=== PATIENT | male | born 1985 | race Caucasian/White ===

== ENCOUNTER 2016-08-23 23:34 | Emergency (ER) | payer OTHER ==
[~2016-08-23] VITALS: Ht 175.2 cm; Wt 88.5 kg
[~2016-08-23 23:34] MED LIST: CATAFLAM50 MG PO; CELEXA10 MG PO; CELEXA40 MG PO; CEPHALEXIN500 M1 PO; CLINDAMYCIN HC300 MG PO; CYCLOBENZAPRINE10 MG PO; DAYPRO600 M1 PO; DELTASONE20 M1 PO; FLEXERIL10 MG PO; FLEXERIL5 MG PO; HYDROCODONE BIT1 T11 PO; MOTRIN800 MG PO; Motrin,Rufen800 MG PO; NAPROSYN500 MG PO; NKHM; NORCO 325 MG-51 TAB PO; PARAFON FORTE500 MG PO; PEN-VEE K500 MG PO; PENICILLIN VK500 MG PO; PRILOSEC20 M2 PO; PROZAC40 M1 PO; SERTRALINE25 MG PO; TRAMADOL HCL50 MG PO; TRAMADOL50 MG PO; ULTRAM50 MG PO; ZOFRAN4 MG PO
[2016-08-23 23:56] LABS: BASO # 0.1 10*3/uL (0.0-0.1); BASO % 0.6 % (0.0-1.0); EOS # 0.1 10*3/uL (0.0-0.4); EOS % 0.7 % (1.0-4.0); HEMATOCRIT 48.7 % (42.0-52.0); HEMOGLOBIN 16.3 g/dl (14.0-18.0); LYMPH # 2.3 10*3/uL (1.3-4.4); LYMPH % 27.1 % (27.0-41.0); MEAN CELL VOLUME 86.8 fl (80.0-94.0); MEAN CORPUSCULAR HGB 29.1 pg (27.0-31.0); MEAN CORPUSCULAR HGB CONC 33.5 g/dl (33.0-37.0); MEAN PLATELET VOLUME 8.8 fl (9.6-12.3); MONO # 0.5 10*3/uL (0.1-1.0); MONO % 5.8 % (3.0-9.0); NEUT # 5.5 10*3/uL (2.3-7.9); NEUT % 65.6 % (47.0-73.0); PLATELET COUNT AUTOMATED 310 10*3/uL (130-400); RED BLOOD COUNT 5.61 10*6/uL (4.50-5.90); RED CELL DISTRI WIDTH 13.3 % (0-14.5); WHITE BLOOD COUNT 8.4 10*3/uL (4.8-10.8)
[2016-08-23 23:56] LABS: BILIRUBIN NEGATIVE (NEGATIVE); BLOOD TRACE-LYSED (NEGATIVE); CLARITY CLEAR (CLEAR); COLOR STRAW (YELLOW); GLUCOSE NEGATIVE (NEGATIVE); KETONE NEGATIVE (NEGATIVE); LEUKO ESTERASE NEGATIVE (NEGATIVE); NITRITE NEGATIVE (NEGATIVE); PROTEIN NEGATIVE (NEGATIVE); SPECIFIC GRAVITY <= 1.005 (1.005-1.030); UROBILINOGEN 0.2 E.U./dl (0.2-1.0)
[2016-08-24 00:08] LABS: URINE AMPHETAMINES < 1000 (1000ng/ml); URINE BARBITURATES < 200 (200ng/ml); URINE COCAINE < 300 (300ng/ml)
[2016-08-24 00:12] LABS: EPITHELIAL CELLS 0-2; URINE REFLEX COMMENT NO (NO); WBC 0-2 wbc/hpf (0-5)
[2016-08-24 00:13] LABS: BUN 7 mg/dl (7-24); CARBON DIOXIDE 25 mmol/L (21-32); CHLORIDE 103 mmol/L (98-107); EST GLOM FILT AFRICAN AMERICAN > 60 ml/min; GLUCOSE 101 mg/dL (65-99); POTASSIUM 3.7 mmol/L (3.5-5.1); SODIUM 140 mmol/L (136-145)
== END 2016-08-24 14:46 | disposition home or self-care (01) ==
LOC: ED 23:34
PROVIDERS: Emergency Medicine Emergency Medical Services
DX: F10.129 Alcohol abuse with intoxication, unspecified (principal); R45.851 Suicidal ideations; F32.9 Major depressive disorder, single episode, unspecified; F20.9 Schizophrenia, unspecified; F17.200 Nicotine dependence, unspecified, uncomplicated; Z98.890 Other specified postprocedural states; Z88.8 Allergy status to other drugs, medicaments and biological substances

== ENCOUNTER → 2016-12-26 | Emergency (ER) | payer OTHER ==
[~2016-12-26] VITALS: Ht 175.2 cm; Wt 90.7 kg
== END ==
LOC: ED 02:56
DX: S90.32XA Contusion of left foot, initial encounter (principal); F17.200 Nicotine dependence, unspecified, uncomplicated; Z79.899 Other long term (current) drug therapy; W22.8XXA Striking against or struck by other objects, initial encounter; Y93.89 Activity, other specified; Y92.89 Other specified places as the place of occurrence of the external cause; Y99.9 Unspecified external cause status

== ENCOUNTER 2017-03-06 23:47 | Emergency (ER) | payer OTHER ==
[~2017-03-06] VITALS: Ht 175.2 cm; Wt 90.7 kg
[2017-03-07 01:07] LABS: BILIRUBIN NEGATIVE (NEGATIVE); BLOOD NEGATIVE (NEGATIVE); CLARITY CLEAR (CLEAR); COLOR YELLOW (YELLOW); GLUCOSE NEGATIVE (NEGATIVE); KETONE NEGATIVE (NEGATIVE); LEUKO ESTERASE NEGATIVE (NEGATIVE); NITRITE NEGATIVE (NEGATIVE); PH 5.5 (5.0-9.0); PROTEIN NEGATIVE (NEGATIVE); SPECIFIC GRAVITY <= 1.005 (1.005-1.030); UROBILINOGEN 0.2 E.U./dl (0.2-1.0)
[2017-03-07 01:11] LABS: EPITHELIAL CELLS 0-5
[2017-03-07 01:12] LABS: RBC 0-2 rbc/hpf (0-2); URINE REFLEX COMMENT NO (NO); WBC 0-2 wbc/hpf (0-5)
[2017-03-07 01:15] LABS: URINE AMPHETAMINES < 1000 (1000ng/ml); URINE BARBITURATES < 200 (200ng/ml); URINE COCAINE > 300 (300ng/ml)
== END 2017-03-07 01:16 | disposition left against medical advice (07) ==
LOC: ED 23:47
PROVIDERS: Emergency Medicine Emergency Medical Services
DX: S01.511A Laceration without foreign body of lip, initial encounter (principal); Z79.899 Other long term (current) drug therapy; Y08.89XA Assault by other specified means, initial encounter; Y93.89 Activity, other specified; Y92.89 Other specified places as the place of occurrence of the external cause; Y99.9 Unspecified external cause status

== ENCOUNTER 2018-08-15 17:11 | Inpatient (IN) | payer OTHER ==
[~2018-08-15] VITALS: Ht 175.2 cm; Wt 108.9 kg
--- NOTE | ~2018-08-15 | EKG ---
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
[2018-08-15 17:11] VITALS: BP 156/80
[2018-08-15 17:41] LABS: BASO # 0.1 10*3/uL (0.0-0.1); BASO % 0.5 % (0.0-1.0); EOS # 0.1 10*3/uL (0.0-0.4); EOS % 0.5 % (1.0-4.0); HEMATOCRIT 45.4 % (42.0-52.0); HEMOGLOBIN 14.7 g/dl (14.0-18.0); LYMPH # 2.5 10*3/uL (1.3-4.4); LYMPH % 26.8 % (27.0-41.0); MEAN CELL VOLUME 82.1 fl (80.0-94.0); MEAN CORPUSCULAR HGB 26.6 pg (27.0-31.0); MEAN CORPUSCULAR HGB CONC 32.4 g/dl (33.0-37.0); MEAN PLATELET VOLUME 9.3 fl (9.6-12.3); MONO # 0.7 10*3/uL (0.1-1.0); MONO % 7.4 % (3.0-9.0); NEUT % 64.6 % (47.0-73.0); PLATELET COUNT AUTOMATED 277 10*3/uL (130-400); RED BLOOD COUNT 5.53 10*6/uL (4.50-5.90); RED CELL DISTRI WIDTH 14.8 % (0-14.5); WHITE BLOOD COUNT 9.2 10*3/uL (4.8-10.8)
[2018-08-15 17:50] LABS: ACT PARTIAL THROMBO TIME 23.6 SECONDS (20.8-31.5)
[2018-08-15 17:57] LABS: BILIRUBIN NEGATIVE (NEGATIVE); BLOOD TRACE-INTACT (NEGATIVE); CLARITY SL CLOUDY (CLEAR); COLOR YELLOW (YELLOW); GLUCOSE NEGATIVE (NEGATIVE); KETONE TRACE (NEGATIVE); LEUKO ESTERASE NEGATIVE (NEGATIVE); NITRITE NEGATIVE (NEGATIVE); PH 5.5 (5.0-9.0); SPECIFIC GRAVITY >= 1.030 (1.005-1.030)
[2018-08-15 17:58] LABS: ALBUMIN 3.8 gm/dl (3.1-4.5); ALKALINE PHOSPHATASE 127 U/L (45-117); BUN 8 mg/dl (7-24); CHLORIDE 104 mmol/L (98-107); CREATININE 0.96 mg/dL (0.70-1.30); LIPASE 194 U/L (73-393); POTASSIUM 3.5 mmol/L (3.5-5.1); SGOT/AST 28 IU/L (3-35); SGPT/ALT 47 U/L (12-78); SODIUM 141 mmol/L (136-145); TOTAL PROTEIN 7.7 gm/dL (6.4-8.2)
[2018-08-15 18:03] LABS: ACETAMINOPHEN (TYLENOL) < 5.0 ug/ml (10-30); ETHYL ALCOHOL < 3.0 mg/dl (<3); TROPONIN I < 0.015 ng/ml (<0.045)
[2018-08-15 18:06] LABS: URINE AMPHETAMINES < 1000 (1000ng/ml); URINE BARBITURATES < 200 (200ng/ml); URINE BENZODIAZEPINES < 200 (200ng/ml); URINE CANNABINOIDS (THC) > 50 (50ng/ml); URINE COCAINE < 300 (300ng/ml); URINE METHADONE < 300 (300ng/ml); URINE OPIATES < 300 (300ng/ml)
[2018-08-15 18:10] LABS: BACTERIA 1+; MUCOUS 2+; URINE PHENCYCLIDINE < 25 (25ng/ml)
[2018-08-15 18:35] VITALS: BP 146/88
--- NOTE | 2018-08-15 18:44 | NUR ---
PT REQUESTED TO STAY IN HIS STREET CLOTHES AT THIS TIME
--- NOTE | 2018-08-15 18:49 | NUR ---
Time: 1839 A 33 year old MALE admitted to under services of MARY BHATT DO. Pt. arrived via ER from ER. Chief complaint: ALCOHOL ABUSE. ORIENTED TO ROOM, CALL LIGHT SYSTEM DEMONSTRATED. ZORAN WEBER
--- NOTE | 2018-08-15 19:55 | NUR ---
PATIENT MEDICATED COUNTED WITH RENAE RN AND KAYLIN SAMPSON. SENT TO PHARMACY AT THIS TIME
[2018-08-15 20:00] VITALS: BP 130/86
--- NOTE | 2018-08-15 20:13 | NUR ---
PATIENT PROVIDED WITH NICODERM PATCH PER DRS ORDERS FOR COMPLAINTS OF NICOTENE WITHDRAWL. PATIENT DENIES OTHER COMPLAINTS AT THIS TIME. RN WILL CONTINUE TO MONITOR
[2018-08-15] MEDS ORDERED: MIRTAZAPINE15 M2 PO (21:54)
[2018-08-15] MEDS ORDERED: QUETIAPINE FUM200 M3 PO (21:54)
[2018-08-15] MEDS ORDERED: OMEPRAZOLE40 MG PO (21:54)
[2018-08-15] MEDS ORDERED: REXULTI2 MG PO (21:54)
[2018-08-15] MEDS ORDERED: HYDROXYZINE PAM50 MG PO (21:55)
[2018-08-15] MEDS ORDERED: TRINTELLIX10 MG PO (21:55)
[2018-08-15] MEDS ORDERED: CYCLOBENZAPRINE10 MG PO (22:04)
[2018-08-16] VITALS: BP 136/79
--- NOTE | 2018-08-16 00:37 | NUR ---
RESTING IN BED WATCHING TV. IV FLUIDS CONT. NO DISTRESS NOTED. DENIES C/O'S PAIN OF DISCOMFORT AT THIS TIME.
--- NOTE | 2018-08-16 01:24 | NUR ---
RESTING IN BED WITH EYES CLOSED. APPEARS TO BE SLEEPING. AWAKENED FOR ROUTINE LIBRIUM PO. DENIES NEED FOR ANY OTHER PRN MEDS AT THIS TIME. NO TREMORS NOTED AND NO OTHER C/O'S VOICED.
--- NOTE | 2018-08-16 06:21 | NUR ---
APPEARS TO HAVE SLEPT THIS SHIFT. NO DISTRESS NOTED.
[2018-08-16 08:00] VITALS: BP 130/88
--- NOTE | 2018-08-16 09:05 | NUR ---
PT REQUESTED SEROQUEL TO BE GIVEN AT HS.
--- NOTE | 2018-08-16 09:15 | NUR ---
PATIENT MEETS [facility]. PATIENT WANTS TO FOLLOW UP WITH [facility] IN [place] FOR INTENSIVE OUTPATIENT TREATMENT. ENEDINA MATHEWS B.A. SENIOR PRODUCT ENGINEER
[2018-08-16 12:00] VITALS: BP 135/82
--- NOTE | 2018-08-16 12:41 | NUR ---
PT MEDICATED WITH TYLENOL 500MG PO FOR C/O DENTAL PAIN.
--- NOTE | 2018-08-16 13:10 | NUR ---
PT STATED TYLENOL WAS EFFECTIVE IN EASING HIS DENTAL PAIN.
[2018-08-16 16:00] VITALS: BP 140/80
--- NOTE | 2018-08-16 16:49 | NUR ---
NEW NICOTINE PATCH PLACED ON PATIENTS LEFT ARM AT THIS TIME DUE TO PATIENTS LAST PATCH FALLING OFF. PATIENT DENIES ANY OTHER NEEDS AT THIS TIME.
[2018-08-16 20:00] VITALS: BP 134/83
[2018-08-17] VITALS: BP 126/78
--- NOTE | 2018-08-17 07:48 | NUR ---
Self shower , monitor removed. pt. stated that Doc. told him yesterday that monitor would be dc'd today , I offered to check with physician prior to re-application. Pt. then requested list of homeless shelters as he would like to start making calls prior to discharge. Awaiting physician arrival.
[2018-08-17 08:00] VITALS: BP 137/80
--- NOTE | 2018-08-17 08:54 | NUR ---
Discussed discontinuation of monitor w/ Dr. Kumar. Monitor placed.
--- NOTE | 2018-08-17 09:00 | NUR ---
case management was informed that patient stated he would be homeless when he was discharged. case management talked with patient, gave him a homeless, residential list. patient understood that he would have to call and talk with the shelters and see if there were any availabilities. case management and [facility] will follow with patient
[2018-08-17 12:00] VITALS: BP 129/85
--- NOTE | 2018-08-17 12:22 | NUR ---
States recieved information on homeless shelters, made a call and is to call back on discharge.
--- NOTE | 2018-08-17 15:09 | NUR ---
DR. Pfeiffer was notified of pt. pending discharge . Recommends no medsand follow up in 2 weeks fr bx result.
--- NOTE | 2018-08-17 15:41 | NUR ---
PATIENT IS GOING TO [facility] TO RESUME HIS IOP. PATIENT IOP SCHEDULE IS MONDAYS, TUESDAYS, AND THURSDAYS FROM 9-12PM. PATIENT AGREES AND UNDERSTANDS HIS AFTERCARE PLAN. ENEDINA MATHEWS B.A. MUSIC SOUND LIGHT TECHNICIAN
[2018-08-17 16:00] VITALS: BP 130/76
[2018-08-17 20:00] VITALS: BP 121/81
--- NOTE | 2018-08-17 20:49 | NUR ---
PT C/O OF [place]. PRN MEDS GIVEN. SEE EMAR FOR FURTHER DOCUMENTAION.
[2018-08-18] VITALS: BP 124/70
[2018-08-18 06:25] LABS: BASO % 0.6 % (0.0-1.0); EOS # 0.1 10*3/uL (0.0-0.4); HEMATOCRIT 45.7 % (42.0-52.0); HEMOGLOBIN 14.6 g/dl (14.0-18.0); LYMPH % 29.6 % (27.0-41.0); MEAN CELL VOLUME 82.9 fl (80.0-94.0); MEAN CORPUSCULAR HGB 26.5 pg (27.0-31.0); MEAN CORPUSCULAR HGB CONC 31.9 g/dl (33.0-37.0); MEAN PLATELET VOLUME 9.4 fl (9.6-12.3); MONO # 0.6 10*3/uL (0.1-1.0); MONO % 8.3 % (3.0-9.0); NEUT # 3.9 10*3/uL (2.3-7.9); PLATELET COUNT AUTOMATED 261 10*3/uL (130-400); RED BLOOD COUNT 5.51 10*6/uL (4.50-5.90); RED CELL DISTRI WIDTH 14.2 % (0-14.5); WHITE BLOOD COUNT 6.7 10*3/uL (4.8-10.8)
[2018-08-18 06:48] LABS: CREATININE 0.88 mg/dL (0.70-1.30)
[2018-08-18 08:00] VITALS: BP 124/78
[2018-08-18] MEDS ORDERED: TRINTELLIX10 MG PO (12:23)
[2018-08-18] MEDS ORDERED: OMEPRAZOLE40 MG PO (12:23)
[2018-08-18] MEDS ORDERED: CYCLOBENZAPRINE10 MG PO (12:23)
--- NOTE | 2018-08-18 12:45 | NUR ---
Discharge instructions reviewed with patient/family. Patient receptive and verbalizes understanding. Follow-up care arranged. Written instructions given to patient/family. KHADRA HELTON
--- NOTE | 2018-08-18 12:59 | NUR ---
PT DISCHARGED AT THIS TIME WITH AFTER PICKING UP HIS HOME MEDS IN PHARMACY.
[2018-12-08] MEDS ORDERED: TOBRAMYCIN 5 ML5 M1 OPH (14:04)
== END 2018-08-18 12:59 | disposition home or self-care (01) | DRG 897 ==
LOC: ED 17:11 → EDHOLD 17:49 → 4E 17:49
PROVIDERS: Nurse Practitioner Family; ADMIT Internal Medicine
DX: F10.10 Alcohol abuse, uncomplicated (principal); I10 Essential (primary) hypertension; F41.9 Anxiety disorder, unspecified; F17.210 Nicotine dependence, cigarettes, uncomplicated; R31.9 Hematuria, unspecified; R73.9 Hyperglycemia, unspecified; F32.9 Major depressive disorder, single episode, unspecified; Z80.8 Family history of malignant neoplasm of other organs or systems; Z71.6 Tobacco abuse counseling; Z81.8 Family history of other mental and behavioral disorders

== ENCOUNTER 2018-11-16 13:01 | Inpatient (IN) | payer OTHER ==
[~2018-11-16] VITALS: Ht 175.3 cm; Wt 105.3 kg
--- NOTE | ~2018-11-16 | EKG ---
[place], [place] ELECTROCARDIOGRAM REPORT NAME: BEAR TAVERAS UNIT #: [id number] ROOM: 416 DOCTOR: CHRISTINE DRAFT REPORT BIRTHDATE: [birth year] [facility] Test Date: 2018-11-16 Test Time: 14:26:57 Pat Name: BEAR TAVERAS Department: Room: 416 Gender: M Fbi Investigator: Eddie Malone : 1985 Requested By: RO PARADA Order Number: [id number] Reading MD: Lupe Morales MD Measurements Intervals [place] Rate: 81 P: 37 ME: 144 QRS: -45 QRSD: 96 T: -6 QT: 386 QTc: 448 Interpretive Statements Sinus rhythm Left anterior fascicular block Consider anterior infarct Compared to ECG 08/15/2018 17:35:12 Left anterior fascicular block now present Myocardial infarct finding now present Left-axis deviation no longer present ST (T wave) deviation no longer present Electronically Signed On 11-18-2018 6:28:09 PDT by Lupe Morales MD CM:EKGRPT:ELECTROCARDIOGRAM REPORT [id number] RO SURESH DRAFT REPORT RO PARADA DO
--- NOTE | ~2018-11-16 | CON ---
[place], [place] REPORT OF CONSULTATION NAME: BEAR TAVERAS UNIT #: [id number] ROOM: 416 DOCTOR: CHUCKY PHD MATIAS BIRTHDATE: [birth year] DOS: 11/17/2018 HISTORY OF PRESENT ILLNESS: The patient is a 33-year-old male referred by the hospitalist with concerns for depression and alcohol withdrawal. At the present time, the patient is on the 4th floor at [facility]. He is drinking up to 20 to 24 ounce cans of beer per day. He recently had 60 days sober and relapsed after his car broke down. He was living with his and 2 kids and is unsure if he can return due to relationship issues with his as a result of his drinking. 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 He also smokes 2 packs per day and used marijuana in the past. PAST MEDICAL HISTORY: Adjustment disorder with depressed mood, depression, tobacco abuse, alcohol abuse, cannabis abuse. MEDICATIONS: Folic acid, thiamine, Theragran, Lovenox, Desyrel, Zofran, Motrin, Tylenol, Restoril, Bentyl, Robaxin, Celexa, Ativan, Librium. PHYSICAL EXAMINATION: The patient was sitting comfortably, in no apparent distress. He was awake, alert and oriented to person, place and time. Mood was depressed and affect was blunted. He firmly denied suicidal and homicidal ideation, plan and intent. Speech and language were within normal limits conversationally. Thought process was linear and goal directed. There was no evidence of hallucinations or delusions. The patient states that his depression, anger and alcohol issues increased after his mother last year. He has had several legal issues related to drinking and anger issues. He states he drinks because he is depressed and is depressed because he drank. He had been seeing Brianna Cohen and was on Trental and Rexulti, but stopped taking them due to feeling as if they made him more angry while he was drinking. He is not interested in restarting these at this time. He has also followed with [facility], Alcoholics Anonymous and spent 30 days in the [facility]. He is interested in receiving a Vivitrol shot. He is also open to continuing with alcohol and individual counseling as well as medication management. DIAGNOSES: Alcohol abuse, unspecified depressive disorder. PLAN: The patient plans to follow up with [facility] for the Vivitrol shot. He has an appointment on November 25 at 0115 hours. He also plans to follow up with [facility] counseling and outpatient psychotherapy as well and he states that he will consider following up with Nils Cohen again as well. He denied any further needs at this time. Thank you very much for this consult. [place], [place] REPORT OF CONSULTATION NAME: BEAR TAVERAS UNIT #: [id number] ROOM: [facility] DOCTOR: CHUCKY, PHD MATIAS BIRTHDATE: [birth year] Aby Severino, PhD CM:CONSTR:REPORT OF CONSULTATION 1330 11/17/18 1433 interface
[~2018-11-16 13:01] MED LIST changes: +HYDROXYZINE PAM50 MG PO; +MIRTAZAPINE15 M2 PO; +OMEPRAZOLE40 MG PO; +QUETIAPINE FUM200 M3 PO; +REXULTI2 MG PO; +TRINTELLIX10 MG PO
[2018-11-16 13:03] VITALS: BP 149/84
[2018-11-16 13:17] LABS: BILIRUBIN NEGATIVE (NEGATIVE); BLOOD NEGATIVE (NEGATIVE); CLARITY CLEAR (CLEAR); COLOR STRAW (YELLOW); GLUCOSE NEGATIVE (NEGATIVE); KETONE NEGATIVE (NEGATIVE); LEUKO ESTERASE NEGATIVE (NEGATIVE); NITRITE NEGATIVE (NEGATIVE); PH 5.5 (5.0-9.0); SPECIFIC GRAVITY <= 1.005 (1.005-1.030); UROBILINOGEN 0.2 E.U./dl (0.2-1.0)
[2018-11-16] MEDS ORDERED: PRILOSEC20 M1 PO (13:19)
[2018-11-16 13:28] LABS: URINE AMPHETAMINES < 1000 (1000ng/ml); URINE BARBITURATES < 200 (200ng/ml); URINE BENZODIAZEPINES < 200 (200ng/ml); URINE CANNABINOIDS (THC) < 50 (50ng/ml); URINE COCAINE < 300 (300ng/ml); URINE METHADONE < 300 (300ng/ml); URINE OPIATES < 300 (300ng/ml)
[2018-11-16 13:32] LABS: URINE PHENCYCLIDINE < 25 (25ng/ml)
[2018-11-16 13:42] LABS: BACTERIA 1+; MUCOUS 1+
[2018-11-16 13:57] LABS: BASO % 0.7 % (0.0-1.0); EOS % 0.2 % (1.0-4.0); HEMATOCRIT 44.9 % (42.0-52.0); HEMOGLOBIN 14.8 g/dl (14.0-18.0); LYMPH # 1.1 10*3/uL (1.3-4.4); LYMPH % 19.5 % (27.0-41.0); MEAN CELL VOLUME 80.8 fl (80.0-94.0); MEAN CORPUSCULAR HGB 26.6 pg (27.0-31.0); MEAN PLATELET VOLUME 9.2 fl (9.6-12.3); MONO # 0.5 10*3/uL (0.1-1.0); MONO % 8.1 % (3.0-9.0); NEUT % 71.3 % (47.0-73.0); PLATELET COUNT AUTOMATED 264 10*3/uL (130-400); RED BLOOD COUNT 5.56 10*6/uL (4.50-5.90); RED CELL DISTRI WIDTH 14.9 % (0-14.5); WHITE BLOOD COUNT 5.6 10*3/uL (4.8-10.8)
[2018-11-16 14:12] LABS: ALBUMIN 4.1 gm/dl (3.1-4.5); ALKALINE PHOSPHATASE 141 U/L (45-117); BUN 4 mg/dl (7-24); CHLORIDE 103 mmol/L (98-107); POTASSIUM 3.7 mmol/L (3.5-5.1); SGOT/AST 78 IU/L (3-35); SGPT/ALT 82 U/L (12-78); SODIUM 138 mmol/L (136-145); TOTAL PROTEIN 7.3 gm/dL (6.4-8.2)
[2018-11-16 14:20] VITALS: BP 148/82
[2018-11-16 14:25] VITALS: BP 156/91
--- NOTE | 2018-11-16 14:25 | NUR ---
33 year old MALE admitted to room # 416-2 for stabilization. Reports an addiction to BEER last used 4 hours prior to admission. Compliant with admission procedure. Patient denies any anxiety, PATIENT is able to sit still, assessment forms for additional information about patient status.
--- NOTE | 2018-11-16 14:41 | NUR ---
SPOKE WITH DR. CEDENO REGARDING CRITICAL ETOH LEVEL ALSO REGARDING CODE STATUS.
--- NOTE | 2018-11-16 14:57 | NUR ---
CALLED DR LOCKE REGARDING BEHAVIORAL CONSULT. THEY WILL NOTIFY HER.
[2018-11-16 16:00] VITALS: BP 144/60
--- NOTE | 2018-11-16 16:00 | NUR ---
PT RESTING IN BED. NO C/O AT THIS TIME. IVF INFUSING WITH NO PROBLEM. CALL LIGHT IN REACH.
--- NOTE | 2018-11-16 16:25 | NUR ---
PATIENT MEETS [facility]. PATIENT WANTS TO FOLLOW UP WITH [facility] IN [facility] FOR THE VIVITROL SHOT. [place] STAFF WILL FOLLOW UP WITH PATIENT. ENEDINA MATHEWS B.A. SOILED LINEN DISTRIBUTOR
[2018-11-16 20:00] VITALS: BP 154/85
--- NOTE | 2018-11-16 22:11 | NUR ---
PRN ZOFRAN AND TRAZADONE GIVEN FOR COMPLAINTS OF NAUSEA AND INSOMNIA. WILL EVALUATE EFFECTIVENESS.
[2018-11-17] VITALS: BP 130/66
--- NOTE | 2018-11-17 03:22 | NUR ---
PATIENT RESTING IN BED ON RIGHT SIDE WITH EYES CLOSED. RESPIRATIONS ARE EASY AND REGULAR. NO DISTRESS IS NOTED. CALL LIGHT IS WITHIN REACH. WILL CONTINUE TO MONITOR.
--- NOTE | 2018-11-17 09:00 | NUR ---
PT RESTING IN BED. RESP-EASY AND REGULAR. TOLERATED ROUTINE MED WITH NO PROBLEM. MEDICATED WITH ROBAXIN FOR MUSCLE ACHES, SEE EMAR. CALL LIGHT IN REACH. SEE SHIFT ASSESSMENT.
[2018-11-17 12:00] VITALS: BP 128/76
--- NOTE | 2018-11-17 13:10 | NUR ---
PATIENT IS GOING TO FOLLOW UP WITH [facility] FOR THE VIVITROL. PATIENT'S APPOINTMENT IS SET FOR WEDNESDAY, November AT 1:15PM. [place] STAFF WILL PROVIDE COPY OF APPOINTMENT DATE AND TIME. ENEDINA MATHEWS B.A. WEBBING WEAVER
--- NOTE | 2018-11-17 13:11 | NUR ---
PT MEDICATED WITH VISTARIL PO PER PRN ORDER, SEE EMAR. FOR ANXIETY. CALL LIGHT IN REACH.
--- NOTE | 2018-11-17 15:00 | NUR ---
ASSUMED CARE FOR PATIENT AT THIS TIME. PATIENT AWAKE AND ALERT. VOICES NO COMPLAINTS AT THIS TIME. WILL MONITOR.
[2018-11-17 16:00] VITALS: BP 150/97
--- NOTE | 2018-11-17 17:36 | NUR ---
PATIENT REQUESTING MEDICATION FOR MUSCLE ACHES. ROBAXIN ADMINISTERED PRESCRIBED. WILL MONITOR FOR EFFECTIVENESS.
--- NOTE | 2018-11-17 18:36 | NUR ---
PATIENT RESTING IN BED AT THIS TIME, STATES THAT MUSCLE CRAMPING IS BETTER AT THIS TIME. WILL MONITOR.
[2018-11-17 20:00] VITALS: BP 137/84
--- NOTE | 2018-11-17 23:30 | NUR ---
REPORT RECIEVED FROM CAMILLA JAY. PT IS ASLEEP IN BED AT THIS TIME WITH NO OBVIOUS SIGNS OF PAIN OR DISCOMFORT OR WITHDRAWAL SYMPTOMS. RESPIRATIONS EASY AND NONLABORED. NSR ON TIN STACKER. BED LOCKED AND IN LOWEST POSITION. CALL LIGHT IS WITHIN REACH. WILL CONTINUE TO MONITOR.
[2018-11-18] VITALS: BP 119/78
[2018-11-18 08:00] VITALS: BP 138/70
[2018-11-18] MEDS ORDERED: CHLORDIAZEPOXID25 M1 PO (09:37)
--- NOTE | 2018-11-18 10:46 | NUR ---
Discharge instructions reviewed with patient/family. Patient receptive and verbalizes understanding. Follow-up care arranged. Written instructions given to patient/family. SOCRATES SIMMS
[2018-12-08] MEDS ORDERED: TOBRAMYCIN 5 ML5 M1 OPH (14:04)
== END 2018-11-18 10:46 | disposition home or self-care (01) | DRG 897 ==
LOC: ED → 4E 13:48 → EDHOLD 13:48 → 4E 13:53
PROVIDERS: Emergency Medicine; ADMIT Internal Medicine
DX: F10.220 Alcohol dependence with intoxication, uncomplicated (principal); F17.210 Nicotine dependence, cigarettes, uncomplicated; E66.9 Obesity, unspecified; F41.9 Anxiety disorder, unspecified; R73.9 Hyperglycemia, unspecified; F12.10 Cannabis abuse, uncomplicated; F43.20 Adjustment disorder, unspecified; E83.41 Hypermagnesemia; R74.0 Nonspecific elevation of levels of transaminase and lactic acid dehydrogenase [LDH]; Y90.8 Blood alcohol level of 240 mg/100 ml or more; R74.8 Abnormal levels of other serum enzymes; F32.9 Major depressive disorder, single episode, unspecified; Z71.6 Tobacco abuse counseling; Z68.34 Body mass index [BMI] 34.0-34.9, adult; Z80.9 Family history of malignant neoplasm, unspecified; Z79.899 Other long term (current) drug therapy

== ENCOUNTER 2019-03-02 13:57 | Emergency (ER) | payer OTHER ==
[~2019-03-02] VITALS: Ht 180.3 cm; Wt 86.2 kg
[~2019-03-02 13:57] MED LIST changes: +CHLORDIAZEPOXID25 M1 PO; +PRILOSEC20 M1 PO; +TOBRAMYCIN 5 ML5 M1 OPH
[2019-03-02] MEDS ORDERED: AUGMENTIN 875875 MG PO ×2 (15:52→15:53)
== END 2019-03-02 16:28 ==
LOC: ED 13:57
DX: S02.40DA Maxillary fracture, left side, initial encounter for closed fracture (principal); S00.12XA Contusion of left eyelid and periocular area, initial encounter; F10.129 Alcohol abuse with intoxication, unspecified; F17.200 Nicotine dependence, unspecified, uncomplicated; Z79.899 Other long term (current) drug therapy; Y35.91XA Legal intervention, means unspecified, law enforcement official injured, initial encounter; W01.198A Fall on same level from slipping, tripping and stumbling with subsequent striking against other object, initial encounter; Y93.89 Activity, other specified; Y92.89 Other specified places as the place of occurrence of the external cause; Y99.8 Other external cause status

== ENCOUNTER 2019-03-03 17:43 | Emergency (ER) | payer OTHER ==
[~2019-03-03] VITALS: Ht 175.2 cm; Wt 99.8 kg
[~2019-03-03 17:43] MED LIST changes: +AUGMENTIN 875875 MG PO
== END 2019-03-03 18:51 | disposition home or self-care (01) ==
LOC: ED 17:43
DX: S00.12XD Contusion of left eyelid and periocular area, subsequent encounter (principal); R51 Headache; F17.200 Nicotine dependence, unspecified, uncomplicated; F12.90 Cannabis use, unspecified, uncomplicated; Y08.89XD Assault by other specified means, subsequent encounter